=== PATIENT | female | born 1965 | race Two or more races ===

== ENCOUNTER 2018-02-24 08:32 | Emergency (ER) | payer OTHER ==
[~2018-02-24] VITALS: Ht 170.2 cm; Wt 122.5 kg
[~2018-02-24 08:32] MED LIST: LISI10TA6
[2018-02-24 08:43] VITALS: BP 135/78
[2018-02-24] MEDS ORDERED: METHOCARBAMOL 500 MG TAB PO ONE (10:00)
[2018-02-24] MEDS ORDERED: KETOROLAC TROMETH 60MG/2ML VIAL IM ONE (10:00)
== END 2018-02-24 10:52 | disposition home or self-care (01) ==
LOC: ER 08:32
DX: M54.5 Low back pain (principal); I10 Essential (primary) hypertension; M19.90 Unspecified osteoarthritis, unspecified site; E66.01 Morbid (severe) obesity due to excess calories; Z68.41 Body mass index [BMI] 40.0-44.9, adult; Z88.0 Allergy status to penicillin; Z88.1 Allergy status to other antibiotic agents
CPT/HCPCS: 72131; 96372; 99284; J1885